=== PATIENT | male | born 1945 | race Caucasian/White ===

== ENCOUNTER → 2017-01-29 | Outpatient (CLI) | payer MEDICARE, OTHER ==
[~2017-01-29] MED LIST: 3N1 COMMODE MC; ALFU10TA2 PO; ASPI325T32 PO; CHOL50009 PO; CYAN500T46 PO; DOXY100T2 PO; FINA5TAB4 PO; GABA-528 PO; LISI-313 PO; LORA-186 PO; MAGN500C PO; MELA3TAB29 PO; METF1000 PO; OXYC-481 PO; SMV40T PO; TRAM50TA2 PO; WALK1EAC23 MC
--- NOTE | 2017-01-29 16:18 | RADRPT ---
PROCEDURE: XR bilateral knees. CLINICAL INDICATION: Knee pain. TECHNIQUE: AP weightbearing, lateral weightbearing and sunrise views of each knee are available fo r review. 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 There is no evidence of loosening of the prosthesis. Th ere is no evidence of hardware failure. The osseous structures are normal in mineralization, archite cture and alignment No acute fracture or dislocation is seen.No osseous lesions are identified. The soft tissues are unremarkable . there are small bilateral suprapatellar joint effusions. IMPRESSION: Small bilateral suprapatellar joint effusion Otherwise unremarkable bilateral total knee replacements. RPTAT: [facility] .Alex Garcia MD, Date Time Electronically viewed and signed by .Alex Garcia MD, on 01/29/2017 16:18 .B/
== END | disposition home or self-care (01) ==
LOC: HKI 14:39
PROVIDERS: ATTEND Orthopaedic Surgery
DX: Z47.89 Encounter for other orthopedic aftercare (principal); Z96.653 Presence of artificial knee joint, bilateral
CPT/HCPCS: 73562; G0463